=== PATIENT | female | born 1980 | race Caucasian/White ===

== ENCOUNTER 2018-09-09 02:05 | Emergency (ER) | payer BC, OTHER ==
[2018-09-09] MEDS ORDERED: KETOROLAC 30 MG/ML 1 ML VIAL IVP STA (02:21)
[2018-09-09] MEDS ORDERED: SODIUM CHLORIDE 0.9% 1,000 ML IV STA (02:21)
[2018-09-09] MEDS ORDERED: HYDROmorphone 0.5 MG/0.5 ML SYRINGE IVP STA (02:21)
[2018-09-09] MEDS ORDERED: ONDANSETRON 4 MG/2 ML VIAL IVP STA (02:21)
--- NOTE | 2018-09-09 02:36 | ED ---
Abdominal Pain HPI - General Source: patient Mode of arrival: ambulatory Limitations: no limitations <Dot Mendosa - Last Filed: 09/09/18 04:23> <Sumaya Pacheco - Last Filed: 09/09/18 07:56> - General Chief Complaint: Abdominal Pain Stated Complaint: Abdominal Pain Time Seen by Provider: 09/09/18 02:14 - History of Present Illness Initial Comments: 37-year-old female patient presents to the emergency department today for evaluation of right mid abdominal pain that radiates through to her back. Patient states it started suddenly approximately one hour ago. Patient states she has been vomiting since pain onset. Patient states she feels hot but denies any known fevers or chills. She denies any constipation or diarrhea. Denies any hematuria, dysuria, urinary frequency, urinary urgency. She denies any history of abdominal surgery. She does not believe she is . Denies any history of similar symptoms. Denies any abnormal vaginal bleeding or discharge. Patient denies any recent rash, shortness breath, chest pain, back pain, numbness, tingling, dizziness, weakness, headache, visual changes, or any other complaints. (Dot Mendosa) - Related Data Allergies Allergy/AdvReac Type Severity Reaction Status Date / Time No Known Allergies Allergy Verified 09/09/18 02:31 Review of Systems ROS Other: All systems not noted in ROS Statement are negative. <Dot Mendosa - Last Filed: 09/09/18 04:23> ROS Other: All systems not noted in ROS Statement are negative. <Sumaya Pacheco - Last Filed: 09/09/18 07:56> ROS Statement: Those systems with pertinent positive or pertinent negative responses have been documented in the HPI. Past Medical History Past Medical History: Asthma History of Any Multi-Drug Resistant Organisms: None Reported Past Surgical History: Cholecystectomy Smoking Status: Current every day smoker Past Alcohol Use History: Occasional Past Drug Use History: None Reported <Dot Mendosa - Last Filed: 09/09/18 04:23> General Exam Limitations: no limitations General appearance: alert, in no apparent distress, other (This is a well- developed, well-nourished adult female patient in mild distress related to pain. Vital signs upon presentation are pulse 89, respirations 18, pulse ox 99% on room air. Patient vomiting unable to obtain temperature and blood pressure at this time.) Eye exam: Present: normal appearance, PERRL, EOMI. Absent: scleral icterus, conjunctival injection, periorbital swelling ENT exam: Present: normal exam, normal oropharynx, mucous membranes moist Respiratory exam: Present: normal lung sounds bilaterally. Absent: respiratory distress, wheezes, rales, rhonchi, stridor Cardiovascular Exam: Present: regular rate, normal rhythm, normal heart sounds. Absent: systolic murmur, diastolic murmur, rubs, gallop, clicks GI/Abdominal exam: Present: soft, tenderness (Suprapubic tenderness), normal bowel sounds. Absent: distended, guarding, rebound, rigid Neurological exam: Present: alert, oriented X3, CN II-XII intact Psychiatric exam: Present: normal affect, normal mood Skin exam: Present: warm, dry, intact, normal color. Absent: rash <Dot Mendosa M - Last Filed: 09/09/18 04:23> Course Vital Signs 09/09/18 09/09/18 09/09/18 02:10 02:39 04:18 Temperature 97.8 F Pulse Rate 89 68 Respiratory 18 15 16 Rate Blood Pressure 137/88 121/83 O2 Sat by Pulse 99 Oximetry Medical Decision Making - Lab Data Result diagrams: 09/09/18 02:30 09/09/18 02:30 - Radiology Data Radiology results: report reviewed, image reviewed <Dot Mendosa M - Last Filed: 09/09/18 04:23> - Lab Data Result diagrams: 09/09/18 02:30 09/09/18 02:30 <Sumaya Pacheco - Last Filed: 09/09/18 07:56> - Medical Decision Making 37-year-old female patient presents to the emergency department today for evaluation of right-sided abdominal pain radiating through to her back. Physical examination did reveal suprapubic abdominal tenderness. Patient did have several episodes of vomiting since pain onset. Labs reviewed and did reveal 41 red blood cells in the urine. There is concern for kidney stones we did perform CT of the abdomen and pelvis without contrast, this was negative for any acute intra-abdominal process. Given these findings it is felt the patient, who does have history of ovarian cyst, may have experiencing a ruptured cyst. Upon reevaluation she is resting comfortably in bed. She denies any pain at this time. She'll be discharged home to follow-up with her primary care physician for recheck in 1-2 days. Return parameters were discussed in detail. She verbalizes understanding and agrees this plan. (Dot Mendosa) I was available for consultation in the emergency department. The history and physical exam were done by the midlevel provider. I was consulted for this patient's care. I reviewed the case with the midlevel provider and based on their presentation of the patient, I agree with the assessment, medical decision making and plan of care as documented. Chart was dictated using [employer] dictation software. Attempts were made to correct any dictation errors however some typographical errors may persist. (Sumaya Pacheco) - Lab Data Lab Results 09/09/18 09/09/18 09/09/18 Range/Units 02:25 02:25 02:30 WBC (3.8-10.6) k/uL RBC (3.80-5.40) m/uL Hgb (11.4-16.0) gm/dL Hct (34.0-46.0) % MCV (80.0-100.0) fL MCH (25.0-35.0) pg MCHC (31.0-37.0) g/dL RDW (11.5-15.5) % Plt Count (150-450) k/uL Neutrophils % % Lymphocytes % % Monocytes % % Eosinophils % % Basophils % % Neutrophils # (1.3-7.7) k/uL Lymphocytes # (1.0-4.8) k/uL Monocytes # (0-1.0) k/uL Eosinophils # (0-0.7) k/uL Basophils # (0-0.2) k/uL Sodium 140 (137-145) mmol/L Potassium 3.6 (3.5-5.1) mmol/L Chloride 106 (98-107) mmol/L Carbon Dioxide 25 (22-30) mmol/L Anion Gap 9 mmol/L BUN 14 (7-17) mg/dL Creatinine 0.81 (0.52-1.04) mg/dL Est GFR (CKD-EPI)AfAm >90 (>60 ml/min/1.73 sqM) Est GFR (CKD-EPI)NonAf >90 (>60 ml/min/1.73 sqM) Glucose 107 H (74-99) mg/dL Calcium 9.3 (8.4-10.2) mg/dL Total Bilirubin 0.4 (0.2-1.3) mg/dL AST 17 (14-36) U/L ALT 19 (9-52) U/L Alkaline Phosphatase 87 (38-126) U/L Total Protein 7.0 (6.3-8.2) g/dL Albumin 4.1 (3.5-5.0) g/dL Amylase 49 (30-110) U/L Lipase 143 (23-300) U/L Urine Color Yellow Urine Appearance Clear (Clear) Urine pH 5.5 (5.0-8.0) Ur Specific [place] 1.019 (1.001-1.035) Urine Protein Negative (Negative) Urine Glucose (UA) Negative (Negative) Urine Ketones Negative (Negative) Urine Blood Small H (Negative) Urine Nitrite Negative (Negative) Urine Bilirubin Negative (Negative) Urine Urobilinogen <2.0 (<2.0) mg/dL Ur Leukocyte Esterase Trace H (Negative) Urine RBC 40 H (0-5) /hpf Urine WBC 8 H (0-5) /hpf Ur Squamous Epith Cells 1 (0-4) /hpf Urine Bacteria Rare H (None) /hpf Urine Mucus Rare H (None) /hpf Urine HCG, Qual Not Detected (Not Detectd) 09/09/18 Range/Units 02:30 WBC 8.4 (3.8-10.6) k/uL RBC 4.48 (3.80-5.40) m/uL Hgb 13.7 (11.4-16.0) gm/dL Hct 40.0 (34.0-46.0) % MCV 89.2 (80.0-100.0) fL MCH 30.6 (25.0-35.0) pg MCHC 34.3 (31.0-37.0) g/dL RDW 12.7 (11.5-15.5) % Plt Count 248 (150-450) k/uL Neutrophils % 52 % Lymphocytes % 38 % Monocytes % 5 % Eosinophils % 2 % Basophils % 1 % Neutrophils # 4.4 (1.3-7.7) k/uL Lymphocytes # 3.2 (1.0-4.8) k/uL Monocytes # 0.4 (0-1.0) k/uL Eosinophils # 0.2 (0-0.7) k/uL Basophils # 0.1 (0-0.2) k/uL Sodium (137-145) mmol/L Potassium (3.5-5.1) mmol/L Chloride (98-107) mmol/L Carbon Dioxide (22-30) mmol/L Anion Gap mmol/L BUN (7-17) mg/dL Creatinine (0.52-1.04) mg/dL Est GFR (CKD-EPI)AfAm (>60 ml/min/1.73 sqM) Est GFR (CKD-EPI)NonAf (>60 ml/min/1.73 sqM) Glucose (74-99) mg/dL Calcium (8.4-10.2) mg/dL Total Bilirubin (0.2-1.3) mg/dL AST (14-36) U/L ALT (9-52) U/L Alkaline Phosphatase (38-126) U/L Total Protein (6.3-8.2) g/dL Albumin (3.5-5.0) g/dL Amylase (30-110) U/L Lipase (23-300) U/L Urine Color Urine Appearance (Clear) Urine pH (5.0-8.0) Ur Specific [place] (1.001-1.035) Urine Protein (Negative) Urine Glucose (UA) (Negative) Urine Ketones (Negative) Urine Blood (Negative) Urine Nitrite (Negative) Urine Bilirubin (Negative) Urine Urobilinogen (<2.0) mg/dL Ur Leukocyte Esterase (Negative) Urine RBC (0-5) /hpf Urine WBC (0-5) /hpf Ur Squamous Epith Cells (0-4) /hpf Urine Bacteria (None) /hpf Urine Mucus (None) /hpf Urine HCG, Qual (Not Detectd) - Radiology Data CT abdomen and pelvis was obtained without contrast. Report is reviewed in its entirety. Impression by Dr. Callahan shows no acute intra-abdominal process. Mild colonic diverticulosis. (Dot Mendosa) Disposition Is patient prescribed a controlled substance at d/c from ED?: No Time of Disposition: 04:18 <Dot Mendosa - Last Filed: 09/09/18 04:23> <Sumaya Pacheco P - Last Filed: 09/09/18 07:56> Clinical Impression: Abdominal pain Disposition: HOME SELF-CARE Condition: Good Instructions (If sedation given, give patient instructions): Ovarian Cyst (ED), Abdominal Pain (ED) Additional Instructions: Take medications as directed. Follow-up with your primary care physician for recheck as soon as possible. Return to the emergency department immediately for any new, worsening, or concerning symptoms. Referrals: Francia Serra MD [Primary Care Provider] - 1-2 days
[2018-09-09 02:39] VITALS: TEMP 97.8
[2018-09-09 02:47] LABS: Basophils # (A) 0.1 k/uL (0-0.2); Basophils % (A) 1 %; Eosinophils # (A) 0.2 k/uL (0-0.7); Eosinophils % (A) 2 %; HGB 13.7 gm/dL (11.4-16.0); Lymphocytes # (A) 3.2 k/uL (1.0-4.8); Lymphocytes % (A) 38 %; MCH 30.6 pg (25.0-35.0); MCHC 34.3 g/dL (31.0-37.0); MCV 89.2 fL (80.0-100.0); Mean Platelet Volume 6.8; Monocytes # (A) 0.4 k/uL (0-1.0); Monocytes % (A) 5 %; Neutrophils # (A) 4.4 k/uL (1.3-7.7); Neutrophils % (A) 52 %; Platelet Count 248 k/uL (150-450); RBC 4.48 m/uL (3.80-5.40); RDW 12.7 % (11.5-15.5); WBC 8.4 k/uL (3.8-10.6)
[2018-09-09 02:52] LABS: Appearance,Urine Clear (Clear); Bacteria,Urine Rare /hpf; Bilirubin,Urine Negative (Negative); Blood,Urine Small (Negative); Color,Urine Yellow; Glucose,Urine (UA) Negative (Negative); Ketones,Urine Negative (Negative); Leukocyte Esterase,Urine Trace (Negative); Mucus,Urine Rare /hpf; Nitrite,Urine Negative (Negative); PH, Urine 5.5 (5.0-8.0); Protein,Urine Negative (Negative); RBC,Urine 40 /hpf (0-5); Specific Gravity,Urine 1.019 (1.001-1.035); Squamous Epithelial Cell,Urine 1 /hpf (0-4); Urobilinogen,Urine <2.0 mg/dL (<2.0); WBC,Urine 8 /hpf (0-5)
[2018-09-09 03:10] LABS: ALT 19 U/L (9-52); AST 17 U/L (14-36); Albumin 4.1 g/dL (3.5-5.0); Alkaline Phosphatase 87 U/L (38-126); Amylase 49 U/L (30-110); Anion Gap 9 mmol/L; Blood Urea Nitrogen 14 mg/dL (7-17); Calcium 9.3 mg/dL (8.4-10.2); Carbon Dioxide 25 mmol/L (22-30); Chloride 106 mmol/L (98-107); Glucose 107 mg/dL (74-99); Lipase 143 U/L (23-300); Potassium 3.6 mmol/L (3.5-5.1); Sodium 140 mmol/L (137-145); Total Bilirubin 0.4 mg/dL (0.2-1.3)
--- NOTE | 2018-09-09 03:52 | CT ---
EXAM: CT Abdomen and Pelvis Without Intravenous Contrast CLINICAL HISTORY: ITS.REASON CT Reason: Pain TECHNIQUE: Axial computed tomography images of the abdomen and pelvis without intravenous contrast. CTDI is 8 mGy and DLP is 428 mGy-cm. This CT exam was performed using one or more of the following dose reduction techniques: automated exposure control, adjustment of the mA and/or kV according to patient size, and/or use of iterative reconstruction technique. COMPARISON: No relevant prior studies available. FINDINGS: Lung bases: No mass. No consolidation. ABDOMEN: Liver: Unremarkable. Gallbladder and bile ducts: Unremarkable. Pancreas: No ductal dilation. Spleen: Unremarkable. Adrenals: Unremarkable. Kidneys and ureters: No obstructing stones. No hydronephrosis. Stomach and bowel: No bowel obstruction or bowel wall thickening. Mild colonic diverticulosis. PELVIS: Appendix: No evidence of appendicitis. Bladder: No stones. Reproductive: Unremarkable. ABDOMEN and PELVIS: Intraperitoneal space: Unremarkable. Bones/joints: No acute fractures. Soft tissues: Unremarkable. Vasculature: No abdominal aortic aneurysm. Lymph nodes: No enlarged lymph nodes. IMPRESSION: No acute intra-abdominal process. Mild colonic diverticulosis.
[2018-09-09] MEDS ORDERED: ONDANSETRON 4 MG ODT STARTER PACK 2 TAB BTL PO STA (04:17)
[2018-09-09] MEDS ORDERED: ACET/COD 300 MG/30 MG STARTER PACK 6 TAB BTL PO STA (04:17)
[2018-09-09 04:19] VITALS: BP 121/83; PULSE 68; RESP 16
== END 2018-09-09 04:27 | disposition home or self-care (01) ==
LOC: EC 02:05
DX: R10.9 Unspecified abdominal pain (principal); K57.30 Diverticulosis of large intestine without perforation or abscess without bleeding; R31.9 Hematuria, unspecified; R11.10 Vomiting, unspecified; M54.9 Dorsalgia, unspecified; F17.200 Nicotine dependence, unspecified, uncomplicated; Z90.49 Acquired absence of other specified parts of digestive tract
CPT/HCPCS: 36415; 80053; 82150; 83690; 85025; 81001; 81025; 74176; 99284; 96374; 96375 ×2; 96361 ×2; J2405; J1885; S0119; J1170

== ENCOUNTER 2021-07-01 07:33 | Emergency (ER) | payer BC, OTHER ==
[2021-07-01 07:44] VITALS: BP 133/88; TEMP 98.2
[2021-07-01] MEDS ORDERED: SODIUM CHLORIDE 0.9% 1,000 ML IV STA (08:18)
[2021-07-01] MEDS ORDERED: KETOROLAC 15 MG/ML 1 ML VIAL IVP STA (08:18)
[2021-07-01] MEDS ORDERED: ONDANSETRON 4 MG/2 ML VIAL IVP STA (08:18)
--- NOTE | 2021-07-01 08:48 | ED ---
Abdominal Pain HPI - General Chief Complaint: Abdominal Pain Stated Complaint: Pelvic Pain Source: patient Mode of arrival: ambulatory Limitations: no limitations - History of Present Illness Initial Comments: 40-year-old female with past medical history of PCO S and possible endometriosis presents emergency room with pelvic pain. Patient states that around 4 AM this morning she had the sudden onset of cramping in her suprapubic region. Does have history of similar in the past. States that she was at her hospital 1 year ago for similar complaint. She denies associated urinary symptoms include dysuria, hematuria or difficulty voiding. Denies any changes in her bowel h abits to include diarrhea, consultation, melanic stools or hematochezia. Does admit to mild clumy white discharge. Denies concern for sexually transmitted infections. No fevers. Did not take any medications at home for symptoms before coming in. She has had a cervical biopsy however denies any other procedures on her female organs. Denies any upper abdominal pain. No back pain. No other alleviating, Perceptin or modifying factors - Related Data Home Medications Medication Instructions Recorded Confirmed Albuterol Sulfate [Proair Hfa] 2 puff INHALATION RT-Q6H PRN 07/01/21 07/01/21 Fluticasone/Salmeterol [Advair 1 puff INHALATION RT-DAILY 07/01/21 07/01/21 250-50 Diskus] Previous Rx's Medication Instructions Recorded Mefenamic Acid 250 mg PO Q6HR #20 capsule 07/01/21 Allergies Allergy/AdvReac Type Severity Reaction Status Date / Time No Known Allergies Allergy Verified 07/01/21 08:39 Review of Systems ROS Statement: Those systems with pertinent positive or pertinent negative responses have been documented in the HPI. ROS Other: All systems not noted in ROS Statement are negative. Past Medical History Past Medical History: Asthma History of Any Multi-Drug Resistant Organisms: None Reported Past Surgical History: Cholecystectomy Past Psychological History: No Psychological Hx Reported Smoking Status: Current every day smoker Past Alcohol Use History: Occasional Past Drug Use History: None Reported General Exam Limitations: no limitations General appearance: alert, in no apparent distress Head exam: Present: atraumatic, normocephalic, normal inspection Eye exam: Present: normal appearance, PERRL, EOMI. Absent: scleral icterus, conjunctival injection, periorbital swelling ENT exam: Present: normal exam, mucous membranes moist Neck exam: Present: normal inspection. Absent: tenderness, meningismus, lymphadenopathy Respiratory exam: Present: normal lung sounds bilaterally. Absent: respiratory distress, wheezes, rales, rhonchi, stridor Cardiovascular Exam: Present: regular rate, normal rhythm, normal heart sounds. Absent: systolic murmur, diastolic murmur, rubs, gallop, clicks GI/Abdominal exam: Present: soft, tenderness (suprapubic), normal bowel sounds. Absent: distended, guarding, rebound, rigid Extremities exam: Present: normal inspection, full ROM, normal capillary refill. Absent: tenderness, pedal edema, joint swelling, calf tenderness Back exam: Present: normal inspection Neurological exam: Present: alert, oriented X3, CN II-XII intact Psychiatric exam: Present: normal affect, normal mood Skin exam: Present: warm, dry, intact, normal color. Absent: rash Course Vital Signs 07/01/21 07/01/21 07:42 10:00 Temperature 98.2 F Pulse Rate 91 78 Respiratory 18 16 Rate Blood Pressure 133/88 O2 Sat by Pulse 100 99 Oximetry Medical Decision Making - Medical Decision Making Upon arrival patient is placed in room 11. A thorough history and physical exam was performed. IV access was established and the patient was given 4 mg of Zofran and 15 mg of Toradol. She is additionally given a liter bolus of normal saline. Laboratory studies are conducted and reviewed. All laboratory studies are within normal limits. Urinalysis is negative. HCG negative. Ultrasound of the pelvis is performed which does demonstrate one follicle however no additional findings. It arterial and venous flow within both ovaries. Results are discussed the patient. Reevaluated and has improvement in her pain. Patient will be discharged home at this time to follow up with her REFRIGERATION PERSON. I did recommend pelvic exam however patient refused stating that she would like to follow up with her RE[employer]IGERATION PERSON for her symptoms. Recommended if she has any new or worsening symptoms return to emergency room. Prescription for Ponstel called and the pharmacy. Patient discharged home in stable condition - Lab Data Result diagrams: 07/01/21 08:36 07/01/21 08:36 Lab Results 07/01/21 07/01/21 07/01/21 Range/Units 08:36 08:36 08:36 WBC 6.0 (3.8-10.6) k/uL RBC 4.93 (3.80-5.40) m/uL Hgb 15.3 (11.4-16.0) gm/dL Hct 45.6 (34.0-46.0) % MCV 92.4 (80.0-100.0) fL MCH 31.1 (25.0-35.0) pg MCHC 33.6 (31.0-37.0) g/dL RDW 12.7 (11.5-15.5) % Plt Count 306 (150-450) k/uL MPV 7.3 Neutrophils % 72 % Lymphocytes % 20 % Monocytes % 5 % Eosinophils % 1 % Basophils % 1 % Neutrophils # 4.3 (1.3-7.7) k/uL Lymphocytes # 1.2 (1.0-4.8) k/uL Monocytes # 0.3 (0-1.0) k/uL Eosinophils # 0.1 (0-0.7) k/uL Basophils # 0.1 (0-0.2) k/uL Sodium (137-145) mmol/L Potassium (3.5-5.1) mmol/L Chloride (98-107) mmol/L Carbon Dioxide (22-30) mmol/L Anion Gap mmol/L BUN (7-17) mg/dL Creatinine (0.52-1.04) mg/dL Est GFR (CKD-EPI)AfAm (>60 ml/min/1.73 sqM) Est GFR (CKD-EPI)NonAf (>60 ml/min/1.73 sqM) Glucose (74-99) mg/dL Calcium (8.4-10.2) mg/dL Total Bilirubin (0.2-1.3) mg/dL AST (14-36) U/L ALT (4-34) U/L Alkaline Phosphatase (38-126) U/L Total Protein (6.3-8.2) g/dL Albumin (3.5-5.0) g/dL Urine Color Colorless Urine Appearance Clear (Clear) Urine pH 6.0 (5.0-8.0) Ur Specific [place] 1.003 (1.001-1.035) Urine Protein Negative (Negative) Urine Glucose (UA) Negative (Negative) Urine Ketones Negative (Negative) Urine Blood Negative (Negative) Urine Nitrite Negative (Negative) Urine Bilirubin Negative (Negative) Urine Urobilinogen <2.0 (<2.0) mg/dL Ur Leukocyte Esterase Negative (Negative) Urine HCG, Qual Not Detected (Not Detectd) 07/01/21 Range/Units 08:36 WBC (3.8-10.6) k/uL RBC (3.80-5.40) m/uL Hgb (11.4-16.0) gm/dL Hct (34.0-46.0) % MCV (80.0-100.0) fL MCH (25.0-35.0) pg MCHC (31.0-37.0) g/dL RDW (11.5-15.5) % Plt Count (150-450) k/uL MPV Neutrophils % % Lymphocytes % % Monocytes % % Eosinophils % % Basophils % % Neutrophils # (1.3-7.7) k/uL Lymphocytes # (1.0-4.8) k/uL Monocytes # (0-1.0) k/uL Eosinophils # (0-0.7) k/uL Basophils # (0-0.2) k/uL Sodium 140 (137-145) mmol/L Potassium 4.5 (3.5-5.1) mmol/L Chloride 108 H (98-107) mmol/L Carbon Dioxide 28 (22-30) mmol/L Anion Gap 4 mmol/L BUN 8 (7-17) mg/dL Creatinine 0.83 (0.52-1.04) mg/dL Est GFR (CKD-EPI)AfAm >90 (>60 ml/min/1.73 sqM) Est GFR (CKD-EPI)NonAf 89 (>60 ml/min/1.73 sqM) Glucose 96 (74-99) mg/dL Calcium 9.6 (8.4-10.2) mg/dL Total Bilirubin 1.0 (0.2-1.3) mg/dL AST 20 (14-36) U/L ALT 12 (4-34) U/L Alkaline Phosphatase 96 (38-126) U/L Total Protein 7.7 (6.3-8.2) g/dL Albumin 4.4 (3.5-5.0) g/dL Urine Color Urine Appearance (Clear) Urine pH (5.0-8.0) Ur Specific [place] (1.001-1.035) Urine Protein (Negative) Urine Glucose (UA) (Negative) Urine Ketones (Negative) Urine Blood (Negative) Urine Nitrite (Negative) Urine Bilirubin (Negative) Urine Urobilinogen (<2.0) mg/dL Ur Leukocyte Esterase (Negative) Urine HCG, Qual (Not Detectd) Disposition Clinical Impression: Pelvic pain Disposition: HOME SELF-CARE Condition: Stable Instructions (If sedation given, give patient instructions): Pelvic Pain (ED) Additional Instructions: Please follow up with your OBGYN for further evaluation of your symptoms. Ret urn for any new or worsening symptoms Prescriptions: Mefenamic Acid 250 mg PO Q6HR #20 capsule Is patient prescribed a controlled substance at d/c from ED?: No Referrals: July Casey MD [Primary Care Provider] - 1-2 days Time of Disposition: 10:41
[2021-07-01 08:57] LABS: Appearance,Urine Clear (Clear); Basophils # (A) 0.1 k/uL (0-0.2); Basophils % (A) 1 %; Bilirubin,Urine Negative (Negative); Blood,Urine Negative (Negative); Color,Urine Colorless; Eosinophils # (A) 0.1 k/uL (0-0.7); Eosinophils % (A) 1 %; Glucose,Urine (UA) Negative (Negative); HCT 45.6 % (34.0-46.0); HGB 15.3 gm/dL (11.4-16.0); Ketones,Urine Negative (Negative); Leukocyte Esterase,Urine Negative (Negative); Lymphocytes # (A) 1.2 k/uL (1.0-4.8); Lymphocytes % (A) 20 %; MCH 31.1 pg (25.0-35.0); MCHC 33.6 g/dL (31.0-37.0); MCV 92.4 fL (80.0-100.0); Mean Platelet Volume 7.3; Monocytes # (A) 0.3 k/uL (0-1.0); Monocytes % (A) 5 %; Neutrophils # (A) 4.3 k/uL (1.3-7.7); Neutrophils % (A) 72 %; Nitrite,Urine Negative (Negative); Platelet Count 306 k/uL (150-450); Protein,Urine Negative (Negative); RBC 4.93 m/uL (3.80-5.40); RDW 12.7 % (11.5-15.5); Specific Gravity,Urine 1.003 (1.001-1.035); Urobilinogen,Urine <2.0 mg/dL (<2.0)
[2021-07-01 09:13] LABS: ALT 12 U/L (4-34); AST 20 U/L (14-36); African American GFR (CKD) >90 (>60 ml/min/1.73 sqM); Albumin 4.4 g/dL (3.5-5.0); Alkaline Phosphatase 96 U/L (38-126); Anion Gap 4 mmol/L; Blood Urea Nitrogen 8 mg/dL (7-17); Calcium 9.6 mg/dL (8.4-10.2); Carbon Dioxide 28 mmol/L (22-30); Chloride 108 mmol/L (98-107); Glucose 96 mg/dL (74-99); Non-African American GFR(CKD) 89 (>60 ml/min/1.73 sqM); Potassium 4.5 mmol/L (3.5-5.1); Sodium 140 mmol/L (137-145); Total Protein 7.7 g/dL (6.3-8.2)
--- NOTE | 2021-07-01 09:57 | US ---
EXAMINATION TYPE: US pelvis complete transvag DATE OF EXAM: 07/01/2021 COMPARISON: CT 09/09/2018 CLINICAL HISTORY: pelvic pain, hx pcos/endometriosis. Pelvic pain for the past 5 hours, , histo ry of PCOS and endometriosis TECHNIQUE: Transvaginal (TV) and Transabdominal (TA) . Transabdominal sonographic images of the pel vis were acquired. Transvaginal sonographic images were medically necessary to better assess the fol lowing anatomy: Endometrium Date of LMP: 06/06/2021 EXAM MEASUREMENTS: Uterus: 7.6 x 5.0 x 4.4 cm Endometrial Stripe: 0.8 cm Right Ovary: 2.4 x 2.4 x 1.9 cm Left Ovary: 2.6 x 2.7 x 2.6 cm 1. Uterus: Anteverted wnl, nabothian cysts noted at the cervix 2. Endometrium: wnl 3. Right Ovary: wnl 4. Left Ovary: 1.4 x 1.4 x 1.4 cm cystic focus identified consistent with probable follicle Spectral, color and waveform doppler imaging shows arterial and venous flow within the ovaries Posterior cul-de-sac: wnl IMPRESSION: No abnormality evident to account for patient's symptoms.
[2021-07-01 12:20] VITALS: PULSE 78; RESP 16
== END 2021-07-01 12:20 | disposition home or self-care (01) ==
LOC: EC 07:33
DX: F17.200 Nicotine dependence, unspecified, uncomplicated (principal); J45.909 Unspecified asthma, uncomplicated; Z90.49 Acquired absence of other specified parts of digestive tract
CPT/HCPCS: 36415; 80053; 85025; 81003; 81025; 93975; 76856; 76830; 99284; 96374; 96361; 96375; J2405; J1885